=== PATIENT | female | born 1975 | race Caucasian/White ===

== ENCOUNTER 2019-07-03 03:23 | Emergency (ER) | payer OTHER ==
[~2019-07-03] VITALS: Ht 152.4 cm; Wt 65.8 kg
[2019-07-03 03:29] VITALS: BP 149/103
[2019-07-03] MEDS ORDERED: HYDROCODON-ACE1 EAC8 PO (03:58)
[2019-07-03] MEDS ORDERED: LIDOCAINE VISC100 ML PO (03:58)
== END 2019-07-03 04:10 | disposition home or self-care (01) ==
LOC: M.ERS 03:23
DX: B08.4 Enteroviral vesicular stomatitis with exanthem (principal); G43.909 Migraine, unspecified, not intractable, without status migrainosus; I10 Essential (primary) hypertension; Z90.49 Acquired absence of other specified parts of digestive tract; Z98.890 Other specified postprocedural states; G62.9 Polyneuropathy, unspecified; Z88.5 Allergy status to narcotic agent; Z88.0 Allergy status to penicillin; Z88.8 Allergy status to other drugs, medicaments and biological substances